=== PATIENT | male | born 1975 | race Caucasian/White ===

== ENCOUNTER → 2021-12-11 14:26 | Outpatient (CLI) | payer OTHER, SELFPAY ==
[2021-12-11 16:35] LABS: COVID19 -Nasal RAPID Negative (Negative)
== END ==
PROVIDERS: Referring Provider Nurse Practitioner Family; Visit Provider Nurse Practitioner Family
DX: Z01.812 Encounter for preprocedural laboratory examination (principal); Z20.822 Contact with and (suspected) exposure to COVID-19
CPT/HCPCS: 87635

== ENCOUNTER 2021-12-13 12:08 | Day surgery (SDC) | payer OTHER, SELFPAY ==
--- NOTE | 2021-12-13 | PATH_ITS ---
[facility] Accession Number: [id number] . 01 Material submitted: . colon - TRANSVERSE COLON POLYP . 02 Diagnosis: Transverse Colon, Polyp, Biopsy: Tubular adenoma. MRV 12/15/2021 0944 Local . 02 Electronically signed: . Jaylyn Green MD, Pathologist NPI- [id number] . 01 Gross description: . TRANSVERSE COLON POLYP: Received in formalin are 2 fragment(s) of hernandez, soft tissue measuring 0.3 x 0.2 x 0.2 cm to 0.4 x 0.4 x 0.2 cm submitted entirely in 1 cassette(s) /CHANDNI 12/14/20212007 Local . 02 Pathologist provided ICD-10: D12.3 . 02 CPT . 809822 Performed at: 01 [facility] Cyt[facility] [address] [id number] MD Gage Cornejo MD Phone: [phone] Performed at: 02 [facility] [address] [place], [place] [id number] MD Jaylyn Green MD Phone: [phone]
[2021-12-13 12:31] VITALS: BP 142/73; PULSE 81; RESP 18; TEMP 36.6; O2SAT 95; BMI 36.3
[2021-12-13] MEDS: SODIUM CHLORIDE 0.9% 1,000 ML 70 ML IV (12:46)
--- NOTE | 2021-12-13 13:07 | PM.HP.1 ---
History of Present Illness History of Present Illness Date Patient Seen: 12/13/21 Time Patient Seen: 13:02 Chief complaint: SDC Narrative: Patient is a very pleasant 46-year-old male who presented for colon cancer screening. No previous colonoscopy. No family history is known for colon cancer or colon polyps. No issues with diarrhea or constipation. No recent rectal bleeding. Patient History Medical History Family history of colon cancer Hypercholesteremia Hypertension Family & Social History Social History: household members spouse Tobacco & Substance use: Smoking Status Never smoker alcohol intake current alcohol intake frequency a few times a month Substance Use Type does not use Meds Home Medications and Allergies Home Medications Medication Instructions Recorded Confirmed Type atorvastatin 10 mg tablet (Lipitor) 10 mg PO BEDTIME 12/04/21 12/13/21 History lisinopril 20 mg tablet 20 mg PO DAILY 12/04/21 12/13/21 History Allergies Allergy/AdvReac Type Severity Reaction Status Date / Time No Known Drug Allergies Allergy Verified 12/04/21 15:11 Review of Systems Review of Systems ROS: Yes All systems reviewed with the patient and are negative except as otherwise documented Exam Vital Signs (past 8 hours): - 12/13/21 12:31 Temperature 97.8 F Pulse Rate 81 Respiratory Rate 18 Blood Pressure 142/73 H Pulse Oximetry 95 Oxygen Delivery Method Room Air Const General: cooperative, healthy appearing, comfortable, well developed, well groomed and No acute distress HENMT Head: normocephalic and atraumatic Resp Effort & Inspection: normal respiratory effort, able to speak in complete sentences and no audible wheezes Auscultation: clear to auscultation bilaterally Cardio Rate: regular rate Rhythm: regular rhythm Heart Sounds: S1 normal and S2 normal GI Palpation: soft and other Other: Protuberant Assessment & Plan Assessment & Plan narrative: Screening colonoscopy today, further recommendations to follow Time Spent With Patient Critical Care time: I spent a total of [] minutes of critical care time on this patient's care today; this time is exclusive of procedural time.
--- NOTE | 2021-12-13 13:27 | PM.OP.COLON ---
Operative Date/Time/Diagnoses Date of procedure: 12/13/21 Time of procedure: 13:11 Procedure Notes Procedure in detail: Surgeon: Shyanne Montalvo DO Procedure: Colonoscopy with polypectomy Preoperative diagnosis: Colon cancer screening, no previous colonoscopy Postoperative diagnosis: 3 mm polyp in the transverse, removed with Jumbo forceps Grade 1 internal hemorrhoids Otherwise unremarkable colonoscopy Medications: Monitored anesthesia care, see Anesthesia note Preanesthesia Assessment An H and P was performed/updated and the Px?s ASA class is 2. The procedure was discussed in detail with the patient. The potential risks and complications including infection, bleeding, missed lesions, perforation, need for surgery in case of perforation, prolonged hospital stay, and were explained. A brief question and answer period was allotted and once all questions were answered, informed consent was obtained. The patient was brought back to the procedure room and placed on standard monitoring. The patient?s vital signs were monitored continuously throughout the entire procedure. Prior to starting, a timeout was performed to confirm the patient?s identity, allergies, medications, and procedure. Procedure in detail The patient was placed in left lateral decubitus position and once adequate sedation was obtained a AZRA was performed. The digital rectal examination did not reveal any palpable lesions. The tip of the colonoscope was placed in the anal canal and advanced without difficulty all the way to the cecum which was identified by the appendiceal orifice and the ileocecal valve. Careful examination of all aquino of the colon was performed with irrigation of any residual stool. 3 mm polyp was identified in the transverse colon removed with Jumbo forceps. Grade 1 internal hemorrhoids were noted on retroflexion. The patient tolerated the procedure well and will be brought back to the recovery area to be discharged once criteria are met. The prep was judged to be good/excellent and adequate to identify polyps less than 6 mm. The withdrawal time was 9min. Complications There were no complications and estimated blood loss was minimal. Recommendations: Resume previous diet Continue outPx medications Follow up pathology results Repeat colonoscopy after pathology results are reviewed An emergency contact number was given to the patient for any complications related to the procedure
[2021-12-13 13:30] VITALS: BP 135/79; PULSE 93; RESP 20; TEMP 36.6; O2SAT 96
[2021-12-13 13:36] VITALS: BP 139/82; PULSE 79; RESP 12; O2SAT 95
[2021-12-13 13:41] VITALS: BP 130/73; PULSE 85; RESP 12; O2SAT 95
[2021-12-13 13:46] VITALS: BP 136/72; PULSE 89; RESP 17; O2SAT 96
[2021-12-13 14:00] VITALS: BP 135/71; PULSE 89; RESP 14; TEMP 36.6; O2SAT 95
== END 2021-12-13 14:05 | disposition home or self-care (01) ==
PROVIDERS: Family Provider Physician Assistant; PCP Physician Assistant; Referring Provider Student in an Organized Health Care Education/Training Program; Visit Provider Student in an Organized Health Care Education/Training Program
PROC: 0DJD8ZZ Inspection of Lower Intestinal Tract, Via Natural or Artificial Opening Endoscopic (ICD-10-PCS; CPT 45378; principal; 2021-12-13 13:30)
DX: Z12.11 Encounter for screening for malignant neoplasm of colon (principal); E78.00 Pure hypercholesterolemia, unspecified; I10 Essential (primary) hypertension; K64.0 First degree hemorrhoids; D12.3 Benign neoplasm of transverse colon
CPT/HCPCS: 45380; J2704

== ENCOUNTER → 2025-04-13 13:51 | Outpatient (CLI) | payer OTHER, SELFPAY ==
--- NOTE | 2025-04-13 | DI.RAD.S_ITS ---
PROCEDURE: XR FOOT RT 2V INDICATIONS: RT AND LT FOOT PAIN TECHNIQUE: 3 views of the foot were acquired. COMPARISON: None. FINDINGS: Bones: Mild hammertoe deformities 1st through 5th digits , pes cavus , mild hallux valgus and metatarsus abductus all noted. Also os navicularis appreciated. Joints: Minimal degeneration the 2nd through 5th interphalangeal joints Soft tissues: There is calcification of the plantar tendon insertion on the calcaneus. Mild diffuse soft tissue swelling. IMPRESSION: Chronic findings -as described Dictated by: Jarrell Burgos M.D. on 04/14/2025 at 13:07 Approved by: Jarrell Burgos M.D. on 04/14/2025 at 13:08
--- NOTE | 2025-04-13 | DI.RAD.S_ITS ---
PROCEDURE: XR FOOT LT 2V INDICATIONS: lt foot pain TECHNIQUE: 3 views of the foot were acquired. COMPARISON: [facility], CR, XR FOOT RT 2V, 04/13/2025, 13:12. FINDINGS: Bones: Mild hallux valgus, metatarsus abductus, pes cavus and hammertoe deformities 1st through 5th digits noted. Joints: Mild degeneration 2nd through 5th interphalangeal joints noted Soft tissues: There is calcification of plantar tendon insertion on the calcaneus. Mild diffuse soft swelling. IMPRESSION: Chronic findings as described Dictated by: Jarrell Burgos M.D. on 04/14/2025 at 13:08 Approved by: Jarrell Burgos M.D. on 04/14/2025 at 13:09
== END ==
PROVIDERS: Family Provider Physician Assistant; PCP Physician Assistant; Referring Provider Physician Assistant; Visit Provider Podiatrist Foot & Ankle Surgery
DX: M79.671 Pain in right foot (principal); M79.672 Pain in left foot; M19.071 Primary osteoarthritis, right ankle and foot; M19.072 Primary osteoarthritis, left ankle and foot; M20.11 Hallux valgus (acquired), right foot; M20.12 Hallux valgus (acquired), left foot; M20.41 Other hammer toe(s) (acquired), right foot; M20.42 Other hammer toe(s) (acquired), left foot; M21.6X1 Other acquired deformities of right foot; M21.6X2 Other acquired deformities of left foot; M79.89 Other specified soft tissue disorders
CPT/HCPCS: 73620